=== PATIENT | female | born 1970 | race Caucasian/White ===

== ENCOUNTER → 2019-10-21 08:23 | Day surgery (SDC) | payer BC ==
[~2019-10-21 08:23] MED LIST: Buffered Lidocaine 1% SYRIN* 1 ML/SYRINGE INTRADERM ONE; Dexamethasone IV* 4 MG/ML 1 ML (4 MG) IV SLOW PU ONE; Dexamethasone IV* 4 MG/ML 1 ML (4 MG) ONE; DiMENhydriNATE IV* 50 MG/ML VIAL IV PUSH PRN; Famotidine IV* 10 MG/ML 2 ML (20 mg) IV ONE; Famotidine IV* 10 MG/ML 2 ML (20 mg) ONE; Ibuprofen TAB* 600 MG PO PRN; Ketorolac INJ* 30 MG/ML 1 ML VIAL ONE; Lactated Ringers 1000 ML Bag* 1,000 ML IV SCH; Lidocaine 2% PF * 5 ML VIAL ONE; Midazolam* 1 MG/ML 5 ML VIAL (5 MG) ONE; Naloxone* 0.4 MG/ML 1 ML VIAL IV PRN; Ondansetron INJ* 2 MG/ML VIAL IV PRN; Ondansetron INJ* 2 MG/ML VIAL ONE; Propofol* 10 MG/ML 20 ML BTL ONE; Scopolamine 1.5 mg* PATCH TRANSDERM PRN; fentaNYL* 50 MCG/ML 2 ML VIAL (100 MCG VIAL) IV PRN; fentaNYL* 50 MCG/ML 5 ML VIAL (250 MCG VIAL) ONE; oxyCODONE/Acetamin 5/325 MG* TAB PO PRN
[2019-10-21 12:53] VITALS: BP 141/91
--- NOTE | 2019-10-21 20:35 | OP ---
CC: [facility] * DATE OF OPERATION: 10/21/19 - [facility] DATE OF : 72 SURGEON: Isidoor Fuller MD ANESTHESIOLOGIST: Dr. Echeverria. ANESTHESIA: General endotracheal anesthesia. PRE-OP DIAGNOSES: Menorrhagia, dysmenorrhea. POST-OP DIAGNOSES: Menorrhagia, dysmenorrhea. OPERATIVE PROCEDURE: Dilation, hysteroscopy, curettage, NovaSure ablation. ESTIMATED BLOOD LOSS: Minimal, less than 20 cc. SPECIMEN: Endometrial curettings. FLUIDS: Per Anesthesia. DRAINS: None. FINDINGS: Midline mobile uterus sounds to 10. Normal tubal ostia bilaterally. Cavity length is 5, cavity width is 4.5. Ablation time 1 minute 13 seconds. There were no impinging fibroids on the endometrium. The cervix prolapses to the level of the introitus with general anesthesia. There were no adnexal masses palpated. There was a good ablation throughout the cavity. COMPLICATIONS: None. COUNTS: Sponge count correct x2. CONDITION: The patient tolerated the procedure well and was brought to recovery room awake and in stable condition. DESCRIPTION OF PROCEDURE: The patient was brought to the operating room when general anesthesia was found to be adequate, the patient was prepped and draped in the usual sterile fashion in the dorsal lithotomy position. Time-out was performed. Exam under anesthesia was performed. Weighted speculum was placed in the vagina. The anterior lip of the cervix was grasped with a single-tooth tenaculum. The cervix was gently and easily dilated with a graduated Hegar dilator. The hysteroscope was introduced. Both tubal ostia were visualized. The hysteroscope was removed. Curettage was performed. NovaSure ablation was then performed. The hysteroscope was reintroduced. Excellent ablation was noted throughout. The hysteroscope was removed. The single-tooth tenaculum was removed from the anterior lip of the cervix. There was some oozing from the right site. Pressure was held with a polyp forceps. The polyp forceps was then removed. Excellent hemostasis was noted. All instruments were removed from the vagina and the patient was brought to the recovery room awake and in stable condition. [id number]/[id number] #: [id number] [facility]
== END | disposition home or self-care (01) ==
LOC: OR 08:23
PROVIDERS: ATTEND Obstetrics & Gynecology
DX: N92.1 Excessive and frequent menstruation with irregular cycle (principal); N94.6 Dysmenorrhea, unspecified; N84.0 Polyp of corpus uteri; E03.9 Hypothyroidism, unspecified
CPT/HCPCS: 81025; 88305; J1100; J1885; J2250; J2405; J2704; J3010